=== PATIENT | female | born 2000 | race Caucasian/White ===

== ENCOUNTER 2020-01-02 14:29 | Emergency (ER) | payer OTHER ==
--- NOTE | 2020-01-02 15:12 | EDM.PDOC ---
<Orion Chavis - Last Filed: 01/02/20 21:14> ED HPI GENERAL MEDICAL PROBLEM - General Chief Complaint: Gastrointestinal Problem Stated Complaint: LOWER RT SIDE PAIN Time Seen by Provider: 01/02/20 15:11 - History of Present Illness INITIAL COMMENTS - FREE TEXT/NARRATIVE: 19-year-old female presents the emergency room with right-sided lower abdominal pain. This pain started an hour and 1/2 to 2 hours prior to arrival prior to this the patient ate a sandwich that had a little bit of cheese and some vegetables on it. Patient has not had problems like this in the past. This pain does not really go into her flank and does not radiate into her groin. Patient has not had problems with ovarian cyst in the past. Patient has associated nausea and some vomiting with this. Generally she is quite uncomfortable with this. She denies any possibility of being and has no prior history of abdominal surgeries. Her past medical history is from most part unremarkable. - Related Data Allergies Allergy/AdvReac Type Severity Reaction Status Date / Time No Known Allergies Allergy Verified 01/02/20 15:01 Home Meds: Home Meds Escitalopram Oxalate [Lexapro] 5 mg PO DAILY 01/02/20 [History] Past Medical History - Past Surgical History HEENT Surgical History: Reports: Oral Surgery, Other (See Below) Other HEENT Surgeries/Procedures: wisdom teeth Social & Family History - Family History Family Medical History: Noncontributory - Tobacco Use Smoking Status *Q: Never Smoker ED ROS GENERAL - Review of Systems Review Of Systems: See Below Constitutional: Reports: No Symptoms. Denies: Fever, Chills HEENT: Reports: No Symptoms Respiratory: Reports: No Symptoms Cardiovascular: Reports: No Symptoms GI/Abdominal: Reports: Abdominal Pain, Nausea, Vomiting. Denies: Constipation, Diarrhea : Reports: No Symptoms Musculoskeletal: Reports: No Symptoms Skin: Reports: No Symptoms Neurological: Reports: No Symptoms ED EXAM, GI/ABD - Physical Exam Exam: See Below Exam Limited By: No Limitations General Appearance: Alert, Mild Distress (The pain) Head: Atraumatic, Normocephalic Neck: Normal Inspection, Supple, Non-Tender, Full Range of Motion. No: Lymphadenopathy (L), Lymphadenopathy (R) Respiratory/Chest: No Respiratory Distress, Lungs Clear, Normal Breath Sounds Cardiovascular: Regular Rate, Rhythm, No Edema, No Murmur GI/Abdominal Exam: Normal Bowel Sounds, Soft, Other ( discomfort with palpation mostly in the right lower quadrant does not seem to be low into the pelvis. No suprapubic discomfort no midepigastric discomfort no left-sided discomfort. No rigidity rebound or guarding appreciated) Back Exam: Normal Inspection, CVA Tenderness (R). No: CVA Tenderness (L) Extremities: Normal Inspection Neurological: Alert, Oriented, Normal Cognition Psychiatric: Normal Affect, Normal Mood Skin Exam: Warm, Dry, Intact Course - Re-Assessments/Exams Free Text/Narrative Re-Assessment/Exam: 01/02/20 16:16 Urine still has not been obtained. Labs chemistries and CBC reviewed no significant change however she is got some mild hypo-kalemia. 01/02/20 19:02 Good pain relief after 2 doses of Dilaudid 0.5. She was able to get some rest at this time patient is actually feeling quite a bit better she still has some discomfort in the right lower quadrant on repeat examination no rebound or guarding. Discussed imaging with the patient and she would like to follow-up with an ultrasound which I think is reasonable at this point so this is been ordered and we will see what this looks like. I will also give her a small amount of oral potassium 10 mEq and see how she does with this, if this is tolerated we will repeat the dose. 01/02/20 20:16 Found did not demonstrate the appendix no free fluid is noted. I discussed the findings with this and the patient is really concerned about the possibility as she still having some discomfort. Her family is concerned as they have had ruptured appendix in the family and people with near ruptured appendix in the family. The patient would really like a CT done we will go ahead and order this 01/02/20 21:[address] to be done. The patient is receiving IV potassium at this point I am off shift further care and disposition per Dr. Travis Departure - Departure Disposition: Home, Self-Care 01 Clinical Impression: Right nephrolithiasis, Renal colic on right side, Kidney stone Nausea and vomiting Qualifiers: Vomiting type: unspecified Vomiting Intractability: non-intractable Qualified Code(s): R11.2 - Nausea with vomiting, unspecified - Discharge Information Instructions: Kidney Stones, [id number], Renal Colic Referrals: PCP,Not In Area [Primary Care Provider] - Forms: ED Department Discharge Additional Instructions: Be certain to get the medicines for pain and nausea before you leave the lobby of the ER at the [facility] machine, take the pain medicine as needed and the nausea medicine as needed, strain your urine with a urine strainer until you capture the stone, remember when the stone moves it hurts and when it stops moving the pain goes away, if the pain just gets too bad despite taking the pain medications you will need to be seen in the ER, return here as needed Sepsis Event Note (ED) - Evaluation Sepsis Screening Result: No Definite Risk <Taz Travis - Last Filed: 01/02/20 23:00> Course - Vital Signs Last Recorded V/S: Last Vital Signs Temp 97.1 F 01/02/20 14:56 Pulse 101 H 01/02/20 14:56 Resp 20 01/02/20 14:56 BP 143/91 H 01/02/20 14:56 Pulse Ox 100 01/02/20 14:56 - Orders/Labs/Meds Orders: Active Orders 24 hr Category Date Time Status Abdomen Pelvis w Cont [CT] Stat Exams 01/02/20 20:23 Taken Lactated Ringers [Ringers, Lactated] 1,000 ml Med 01/02/20 15:30 Active IV ASDIRECTED Potassium Chloride [KCl 10 MEQ in Water 100 ML] 10 meq Med 01/02/20 20:30 Active Premix Bag 1 bag IV ASDIRECTED Potassium Chloride [KCl 10 MEQ in Water 100 ML] 10 meq Med 01/02/20 20:30 Active Premix Bag 1 bag IV ASDIRECTED Sodium Chloride 0.9% [Saline Flush] Med 01/02/20 22:05 Active 10 ml FLUSH ONETIME PRN Medication Orders Lactated Ringer's (Ringers, Lactated) 1,000 mls @ 150 mls/hr IV ASDIRECTED [facility] Last Admin: 01/02/20 15:27 Dose: 150 mls/hr Documented by: MIQUEL Potassium Chloride 10 meq/ (Premix) 100 mls @ 100 mls/hr IV ASDIRECTED [facility] Last Admin: 01/02/20 20:41 Dose: 100 mls/hr Documented by: EDIS Potassium Chloride 10 meq/ (Premix) 100 mls @ 100 mls/hr IV ASDIRECTED [facility] Last Admin: 01/02/20 21:46 Dose: 100 mls/hr Documented by: EDIS Sodium Chloride (Saline Flush) 10 ml FLUSH ONETIME PRN PRN Reason: Keep Vein Open Last Admin: 01/02/20 22:16 Dose: 10 ml Documented by: [id number] Labs: Laboratory Tests 01/02/20 01/02/20 01/02/20 Range/Units 15:08 15:10 15:10 WBC 9.51 (3.98-10.04) K/mm3 RBC 4.07 (3.98-5.22) M/mm3 Hgb 12.1 (11.2-15.7) gm/dl Hct 37.4 (34.1-44.9) % MCV 91.9 (79.4-94.8) fl MCH 29.7 (25.6-32.2) pg MCHC 32.4 (32.2-35.5) g/dl RDW Std Deviation 39.8 (36.4-46.3) fL Plt Count 330 (182-369) K/mm3 MPV 8.9 L (9.4-12.3) fl Neut % (Auto) 68.8 (34.0-71.1) % Lymph % (Auto) 23.1 (19.3-51.7) % Bath % (Auto) 7.3 (4.7-12.5) % Eos % (Auto) 0.4 L (0.7-5.8) Baso % (Auto) 0.2 (0.1-1.2) % Neut # (Auto) 6.54 H (1.56-6.13) K/mm3 Lymph # (Auto) 2.20 (1.18-3.74) K/mm3 Bath # (Auto) 0.69 H (0.24-0.36) K/mm3 Eos # (Auto) 0.04 (0.04-0.36) K/mm3 Baso # (Auto) 0.02 (0.01-0.08) K/mm3 Sodium 141 (136-145) mEq/L Potassium 3.2 L (3.5-5.1) mEq/L Chloride 103 (98-107) mEq/L Carbon Dioxide 25 (21-32) mEq/L Anion Gap 16.2 H (5-15) BUN 11 (7-18) mg/dL Creatinine 0.9 (0.55-1.02) mg/dL Est Cr Clr Drug Dosing 86.82 mL/min Estimated GFR (MDRD) > 60 (>60) mL/min BUN/Creatinine Ratio 12.2 L (14-18) Glucose 129 H (74-106) mg/dL Calcium 9.0 (8.5-10.1) mg/dL Total Bilirubin 0.3 (0.2-1.0) mg/dL AST 18 (15-37) U/L ALT 23 (14-59) U/L Alkaline Phosphatase 68 (46-116) U/L Total Protein 8.1 (6.4-8.2) g/dl Albumin 4.2 (3.4-5.0) g/dl Globulin 3.9 gm/dL Albumin/Globulin Ratio 1.1 (1-2) Lipase 54 L (73-393) U/L HCG, Qual Negative (NEGATIVE) Urine Color (Yellow) Urine Appearance (Clear) Urine pH (5.0-8.0) Ur Specific [place] (1.005-1.030) Urine Protein (Negative) Urine Glucose (UA) (Negative) Urine Ketones (Negative) Urine Occult Blood (Negative) Urine Nitrite (Negative) Urine Bilirubin (Negative) Urine Urobilinogen (0.2-1.0) Ur Leukocyte Esterase (Negative) Urine RBC (0-5) /hpf Urine WBC (0-5) /hpf Ur Epithelial Cells (0-5) /hpf Urine Bacteria (FEW) /hpf Urine Mucus (FEW) /hpf 07/25/20 Range/Units 16:25 WBC (3.98-10.04) K/mm3 RBC (3.98-5.22) M/mm3 Hgb (11.2-15.7) gm/dl Hct (34.1-44.9) % MCV (79.4-94.8) fl MCH (25.6-32.2) pg MCHC (32.2-35.5) g/dl RDW Std Deviation (36.4-46.3) fL Plt Count (182-369) K/mm3 MPV (9.4-12.3) fl Neut % (Auto) (34.0-71.1) % Lymph % (Auto) (19.3-51.7) % Bath % (Auto) (4.7-12.5) % Eos % (Auto) (0.7-5.8) Baso % (Auto) (0.1-1.2) % Neut # (Auto) (1.56-6.13) K/mm3 Lymph # (Auto) (1.18-3.74) K/mm3 Bath # (Auto) (0.24-0.36) K/mm3 Eos # (Auto) (0.04-0.36) K/mm3 Baso # (Auto) (0.01-0.08) K/mm3 Sodium (136-145) mEq/L Potassium (3.5-5.1) mEq/L Chloride (98-107) mEq/L Carbon Dioxide (21-32) mEq/L Anion Gap (5-15) BUN (7-18) mg/dL Creatinine (0.55-1.02) mg/dL Est Cr Clr Drug Dosing mL/min Estimated GFR (MDRD) (>60) mL/min BUN/Creatinine Ratio (14-18) Glucose (74-106) mg/dL Calcium (8.5-10.1) mg/dL Total Bilirubin (0.2-1.0) mg/dL AST (15-37) U/L ALT (14-59) U/L Alkaline Phosphatase (46-116) U/L Total Protein (6.4-8.2) g/dl Albumin (3.4-5.0) g/dl Globulin gm/dL Albumin/Globulin Ratio (1-2) Lipase (73-393) U/L HCG, Qual (NEGATIVE) Urine Color Yellow (Yellow) Urine Appearance Clear (Clear) Urine pH 7.0 (5.0-8.0) Ur Specific [place] > or = 1.030 (1.005-1.030) Urine Protein Trace H (Negative) Urine Glucose (UA) Negative (Negative) Urine Ketones 1+ H (Negative) Urine Occult Blood Trace-intact H (Negative) Urine Nitrite Negative (Negative) Urine Bilirubin Negative (Negative) Urine Urobilinogen 0.2 (0.2-1.0) Ur Leukocyte Esterase Negative (Negative) Urine RBC 0-5 (0-5) /hpf Urine WBC 5-10 H (0-5) /hpf Ur Epithelial Cells 0-5 (0-5) /hpf Urine Bacteria Few (FEW) /hpf Urine Mucus Few (FEW) /hpf Meds: Medications Generic Name Dose Route Start Last Admin Trade Name Catherine PRN Reason Stop Dose Admin Lactated Ringer's 1,000 mls @ 150 mls/hr 01/02/20 15:30 01/02/20 15:27 Ringers, Lactated IV 150 mls/hr ASDIRECTED JONATHAN Administration Potassium Chloride 10 meq/ 100 mls @ 100 mls/hr 01/02/20 20:30 01/02/20 20:41 Premix IV 100 mls/hr ASDIRECTED JONATHAN Administration Potassium Chloride 10 meq/ 100 mls @ 100 mls/hr 01/02/20 20:30 01/02/20 21:46 Premix IV 100 mls/hr ASDIRECTED JONATHAN Administration Sodium Chloride 10 ml 01/02/20 22:05 01/02/20 22:16 Saline Flush FLUSH 10 ml ONETIME PRN Administration Keep Vein Open Discontinued Medications Generic Name Dose Route Start Last Admin Trade Name Catherine PRN Reason Stop Dose Admin Diatrizoate Meglum/Diatrizoate Sod 120 ml 01/02/20 22:05 01/02/20 22:16 Gastrografin 37% PO 01/02/20 22:06 120 ml ONETIME ONE Administration Fentanyl 100 mcg 01/02/20 15:21 01/02/20 15:30 Sublimaze IVPUSH 01/02/20 15:22 100 mcg ONETIME ONE Administration Hydromorphone HCl 0.5 mg 01/02/20 15:57 01/02/20 16:02 Dilaudid IVPUSH 01/02/20 15:58 0.5 mg ONETIME ONE Administration Hydromorphone HCl 0.5 mg 01/02/20 17:01 01/02/20 17:04 Dilaudid IVPUSH 01/02/20 17:02 0.5 mg ONETIME STA Administration Hydromorphone HCl 0.5 mg 01/02/20 20:24 01/02/20 20:34 Dilaudid IVPUSH 01/02/20 20:25 0.5 mg ONETIME ONE Administration Iopamidol 100 ml 01/02/20 22:05 01/02/20 22:15 Isovue-300 (61%) IVPUSH 01/02/20 22:06 100 ml ONETIME ONE Administration Ondansetron HCl 4 mg 01/02/20 15:21 01/02/20 15:27 Zofran IVPUSH 01/02/20 15:22 4 mg ONETIME ONE Administration Ondansetron HCl 4 mg 01/02/20 20:24 01/02/20 20:34 Zofran IVPUSH 01/02/20 20:25 4 mg ONETIME ONE Administration Potassium Chloride 10 meq 01/02/20 19:00 01/02/20 19:38 Klor-Con 10 PO 01/02/20 19:01 10 meq ONETIME ONE Administration - Radiology Interpretation Free Text/Narrative:: CT scan shows a 2 mm stone at the right UVJ with some moderate right hydronephrosis but no other acute findings and her appendix is normal. - Re-Assessments/Exams Free Text/Narrative Re-Assessment/Exam: 01/02/20 22:52 I spoke to the patient regarding the CT scan results. We are going to give her a urine strainer to take home I will give her a prescription for some medications from the [facility] machine that she can get on the way out of the lobby. We talked about how when the stone moves it hurts and when it stops moving the pain goes away and sometimes even medicines by mouth do not help with the pain and she might have to see an ER somewhere else if he does not pass this. I believe that a 2 mm stone will pass eventually. Departure - Departure Time of Disposition: 22:57 Condition: Good - Discharge Information *PRESCRIPTION DRUG MONITORING PROGRAM REVIEWED*: No *COPY OF PRESCRIPTION DRUG MONITORING REPORT IN PATIENT SIDDHARTHA: No Sepsis Event Note (ED) - Focused Exam Vital Signs: Vital Signs Temp Pulse Resp BP Pulse Ox 01/02/20 14:56 97.1 F 101 H 20 143/91 H 100
[2020-01-02] MEDS ORDERED: fentaNYL 100 MCG/2 ML SDV IVPUSH ONE (15:21)
[2020-01-02] MEDS ORDERED: Ondansetron 4 MG/2 ML SDV IVPUSH ONE ×2 (15:21→20:24)
[2020-01-02] MEDS ORDERED: Lactated Ringers 1,000 ML IV SCH (15:30)
[2020-01-02] MEDS ORDERED: HYDROmorphone 0.5 MG/0.5 ML Syringe IVPUSH ONE (15:57)
[2020-01-02] MEDS ORDERED: HYDROmorphone 0.5 MG/0.5 ML Syringe IVPUSH STA (17:01)
[2020-01-02] MEDS ORDERED: Potassium Chloride 10 MEQ Tab.ER PO ONE (19:00)
--- NOTE | 2020-01-02 19:52 | US ---
Limited abdominal ultrasound: Multiple real-time images of the lower right abdomen were obtained. Appendix not visualized. No free fluid is seen. Impression: 1. No ultrasound abnormality is seen within the right lower abdomen. Diagnostic code #1 This report was dictated in MDT
[2020-01-02] MEDS ORDERED: HYDROmorphone 1 MG/ML Syringe IVPUSH ONE (20:24)
[2020-01-02] MEDS ORDERED: Potassium Chloride 10 MEQ in Premix Bag 1 BAG IV SCH ×4 (20:30)
[2020-01-02] MEDS ORDERED: Diatrizoate Meglumine/Diatrizoate Sodium 37% 120 ML Bottle PO ONE (22:05)
[2020-01-02] MEDS ORDERED: Sodium Chloride 0.9% 10 ML Syringe FLUSH PRN (22:05)
[2020-01-02] MEDS ORDERED: Iopamidol 612 MG/ML 100 ML Bottle IVPUSH ONE (22:05)
--- NOTE | 2020-01-03 06:31 | CT ---
CT abdomen and pelvis Technique: Multiple axial sections were obtained from above the dome of the diaphragm inferiorly through the pubic symphysis. Intravenous and oral contrast was utilized. Comparison: Previous right lower quadrant abdominal ultrasound performed earlier on the same day (7:29 PM). Findings: Fluid identified around the right kidney. Right kidney shows diminished enhancement as compared the left kidney. Right collecting system is mildly dilated. There is a small 2 mm stone next of the posterior bladder believed to represent an obstructing distal right ureteral calculus located close to the UVJ. Visualized lung bases show nothing acute. Liver shows no focal abnormality. Spleen appears within normal limits. Pancreas appears within normal limits. Aorta shows no aneurysm. Appendix is seen which is normal. No retroperitoneal adenopathy or mesenteric abnormalities are seen. No pelvic mass or adenopathy is noted. Follicles seen within both ovaries. Bone window settings were reviewed which show nothing acute. Impression: 1. Fluid around the right kidney. Diminished enhancement of the right kidney as compared to the left side. Dilated right renal pelvis and right ureter. These findings are felt to be caused by a 2 mm obstructing stone located close to the right UVJ. Please correlate if this matches patient's symptoms. 2. Appendix is seen and is normal in size. 3. No other acute abnormality is appreciated. Diagnostic code #3 This report was dictated in MDT I agree with preliminary report from [facility], finalized on 01/02/20, 11:33 PM Central Daylight Time
== END 2020-01-02 23:07 | disposition home or self-care (01) ==
LOC: JD.ED 14:29
DX: N20.2 Calculus of kidney with calculus of ureter (principal); R11.2 Nausea with vomiting, unspecified; E87.6 Hypokalemia; Z79.899 Other long term (current) drug therapy
CPT/HCPCS: 36415; 74177; 76705; 80053; 81001; 83690; 84703; 85025; 96361; 96365; 96366; 96375; 96376; 99284; A9270; J1170; J2405; J3010; J3480; J7120; Q9963; Q9967; 99283